=== PATIENT | female | born 1985 | race Caucasian/White ===

== ENCOUNTER 2018-12-02 17:16 | Emergency (ER) | payer BC ==
[~2018-12-02] VITALS: Ht 165.1 cm; Wt 98.9 kg
[~2018-12-02 17:16] MED LIST: BACLOFEN 10MG T10 MG; ENDOCET 10-3251 EACH PO; FLEXERIL PO; HYDROCODON-ACE1 EAC7 PO; HYDROCODONE; HYDROCODONE-AP1 EAC6 PO; IBUPROFEN 800800 M1 PO; LEVAQUIN 750 M750 MG PO; MEDROLDOSEPACK PO; MOBIC15 MG; NAPROSYN500 MG; NAPROSYN500 MG PO; NOHOMEMEDICATIONS; NORCO 5-325 TA1 EAC1 PO; NORCO 5-325 TA1 EACH PO; PENICILLIN VK500 MG PO; PHENERGAN 25 MG25 M1; PROPRANOLOL 1010 M1 PO
[2018-12-02] MEDS ORDERED: BUSPIRONE HCL10 MG PO (17:34)
[2018-12-02] MEDS ORDERED: CYCLOBENZAPRINE5 MG PO (17:34)
[2018-12-02] MEDS ORDERED: HYDROXYZINE HCL25 M2 PO (17:35)
[2018-12-02 18:22] LABS: URINE BILIRUBIN NEGATIVE (Negative); URINE BLOOD TRACE (Negative); URINE CLARITY CLEAR; URINE COLOR YELLOW; URINE GLUCOSE-RANDOM NEGATIVE (Negative); URINE KETONES TRACE (Negative); URINE LEUKOCYTES-REFLEX NEGATIVE (Negative); URINE NITRITE-REFLEX NEGATIVE (Negative); URINE PROTEIN NEGATIVE (Negative); URINE SPECIFIC GRAVITY 1.025 (1.005-1.030); URINE UROBILINOGEN 0.2 E.U./dl (0.2-1.0)
[2018-12-02 19:20] LABS: ABSOLUTE BASOPHILS 0.1 thou/uL (0.0-0.2); ABSOLUTE EOSINOPHILS 0.2 thou/uL (0.0-0.7); ABSOLUTE LYMPHOCYTES 2.5 thou/uL (0.8-5.3); ABSOLUTE MONOCYTES 0.7 thou/uL (0.0-1.2); ABSOLUTE NEUTROPHILS 7.6 thou/uL (1.6-8.1); BASOPHILS 0.5 %; EOSINOPHILS 1.5 %; HEMATOCRIT 38.5 % (37.0-47.0); HEMOGLOBIN 12.9 gm/dL (12.0-15.0); MCH 29.9 pg (26.0-34.0); MCHC 33.4 g/dL (28.0-37.0); MCV 89.5 fL (80.0-100.0); MPV 7.9 fl. (7.2-11.1); NUCLEATED RBCS 0 /100WBC; PLATELET COUNT* 318 thou/uL (150-400); RBC 4.31 mil/uL (4.20-5.00); RDW-CV 13.6 % (10.5-14.5); WBC 11.1 thou/uL (4.0-11.0)
[2018-12-02 19:29] LABS: CALCIUM 9.7 mg/dL (8.5-10.1); CREATININE 0.7 mg/dL (0.6-1.3); POTASSIUM 3.7 mmol/L (3.5-5.1)
[2018-12-02 19:34] LABS: ALBUMIN 4.2 g/dL (3.4-5.0); TOTAL BILIRUBIN 0.3 mg/dL (<0.1-1.0); TOTAL PROTEIN 7.8 g/dL (6.4-8.2)
[2018-12-02] MEDS ORDERED: NORCO 5-325 TA1 EAC1 PO (19:47)
[2018-12-02 20:17] VITALS: BP 118/69
== END 2018-12-02 20:18 | disposition home or self-care (01) ==
LOC: M.ERS 17:16
PROVIDERS: Physician Assistant
DX: R10.11 Right upper quadrant pain (principal); N80.9 Endometriosis, unspecified; F41.9 Anxiety disorder, unspecified; G43.909 Migraine, unspecified, not intractable, without status migrainosus; Z98.890 Other specified postprocedural states; Z88.8 Allergy status to other drugs, medicaments and biological substances

== ENCOUNTER 2021-03-17 09:32 | Emergency (ER) | payer BC ==
[~2021-03-17] VITALS: Ht 165.1 cm; Wt 86.2 kg
[~2021-03-17 09:32] MED LIST changes: +BUSPIRONE HCL10 MG PO; +CYCLOBENZAPRINE5 MG PO; +HYDROXYZINE HCL25 M2 PO
[2021-03-17 10:15] LABS: ABSOLUTE BASOPHILS 0.1 thou/uL (0.0-0.2); ABSOLUTE EOSINOPHILS 0.5 thou/uL (0.0-0.7); ABSOLUTE LYMPHOCYTES 1.9 thou/uL (0.8-5.3); ABSOLUTE MONOCYTES 0.7 thou/uL (0.0-1.2); ABSOLUTE NEUTROPHILS 2.7 thou/uL (1.6-8.1); EOSINOPHILS 9.1 %; HEMATOCRIT 36.6 % (37.0-47.0); HEMOGLOBIN 12.5 gm/dL (12.0-15.0); LYMPHOCYTES 31.9 %; MONOCYTES 11.7 %; MPV 8.7 fl. (7.2-11.1); NUCLEATED RBCS 0 /100WBC; PLATELET COUNT* 227 thou/uL (150-400); POLYS 46.3 %; RBC 4.16 mil/uL (4.20-5.00); RDW-CV 13.7 % (10.5-14.5); WBC 5.8 thou/uL (4.0-11.0)
[2021-03-17] MEDS ORDERED: LEVOFLOXACIN750 MG PO (10:18)
[2021-03-17 10:33] LABS: CALCIUM 8.9 mg/dL (8.5-10.1); CREATININE 0.8 mg/dL (0.6-1.3); POTASSIUM 3.3 mmol/L (3.5-5.1)
[2021-03-17 10:44] LABS: ALBUMIN 3.8 g/dL (3.4-5.0); TOTAL BILIRUBIN 0.2 mg/dL (<0.1-1.0); TOTAL PROTEIN 7.2 g/dL (6.4-8.2)
--- NOTE | 2021-03-17 12:37 | EKG ---
[place] [address] ELECTROCARDIOGRAM REPORT Name: ROSALBASHELLY FIDEL Room: [facility]#: [id number] Admission: 03/17/21 Attend Phys: Discharge: Date of : 83 Date of Service: 03/17/21 1207 Report #: [id number] THIS REPORT FOR: //name// [facility] ED Test Date: 2021-03-17 Test Time: 12:07:45 Pat Name: SHELLY NAVARRETE Department: Room: Gender: F Delivery Consultant: [facility] : 1985 Requested By: Raffy Manuel Order Number: [id number] MD: Remberto Andres Measurements Intervals [place] Rate: 61 P: 56 SC: 136 QRS: 42 QRSD: 94 T: 41 QT: 437 QTc: 441 Interpretive Statements Sinus rhythm Compared to ECG 03/17/2021 09:39:05 No significant changes Electronically Signed On 03-17-2021 12:37:21 CDT by Remberto Andres [email or web address] <ELECTRONICALLY SIGNED> By: Remberto Andres MD, [facility] 03/17/21 1237 1207 1207 Remberto Andres MD, [facility] /EPI
--- NOTE | 2021-03-17 12:39 | EKG ---
[place] [address] ELECTROCARDIOGRAM REPORT Name: ROSALBASHELLY FIDEL Room: [facility]#: [id number] Admission: 03/17/21 Attend Phys: Discharge: Date of : 83 Date of Service: 03/17/21938 Report #: [id number] THIS REPORT FOR: //name// [facility] ED Test Date: 2021-03-17 Test Time: 09:39:05 Pat Name: SHELLY NAVARRETE Department: Room: Gender: Ham Boner: MESHA : 1985 Requested By: Raffy Manuel Order Number: [id number] MD: Remberto Andres Measurements Intervals [place] Rate: 92 P: 57 NV: 144 QRS: 36 QRSD: 93 T: 38 QT: 345 QTc: 427 Interpretive Statements Sinus rhythm No previous ECG available for comparison Electronically Signed On 03-17-2021 12:39:47 CDT by Remberto Andres [email or web address] <ELECTRONICALLY SIGNED> By: Remberto Andres MD, [facility] 03/17/21 1239 09 Remberto Andres MD, [facility] /EPI
[2021-03-17 12:41] VITALS: BP 114/70
== END 2021-03-17 12:41 | disposition home or self-care (01) ==
LOC: M.ERS 09:32
PROVIDERS: Emergency Medicine Emergency Medical Services
DX: M94.0 Chondrocostal junction syndrome [Tietze] (principal); R05 Cough; R06.02 Shortness of breath; F41.9 Anxiety disorder, unspecified; R09.81 Nasal congestion; Z98.890 Other specified postprocedural states; Z79.899 Other long term (current) drug therapy; Z79.2 Long term (current) use of antibiotics; Z88.8 Allergy status to other drugs, medicaments and biological substances